=== PATIENT | male | born 1960 | race Caucasian/White ===

== ENCOUNTER → 2023-11-05 00:56 | Outpatient (CLI) | payer OTHER, SELFPAY ==
--- NOTE | 2023-11-05 | DI.RAD_ITS ---
Exam(s) XR THORACIC SPINE COMPLETE EXAM: XR THORACIC SPINE COMPLETE CLINICAL HISTORY: Old spinal cord injury, mid and low back pain, Disability Determination. TECHNIQUE: 2D digital imaging was performed. Three views. COMPARISON: CR XR LUMBAR SPINE AP, LAT from 11/05/2023 FINDINGS: BONES: Mild compression of the superior endplate of T12. No additional compression fractures. ALIGNMENT: Mild levoscoliosis. DISKS: Endplate osteophytes are noted, greater in the lower thoracic levels, toward the right. SOFT TISSUE: Visualized lungs are clear. IMPRESSION: Mild T12 compression fracture. Mild scoliosis and moderate degenerative changes. DATA REPOSITORY: RADIATION DOSE DELIVERED:
--- NOTE | 2023-11-05 | DI.RAD_ITS ---
Exam(s) XR LUMBAR SPINE AP, LAT EXAM: XR LUMBAR SPINE AP, LAT CLINICAL HISTORY: Old spinal cord injury, Mid and Low back pain, Disability Determination. TECHNIQUE: 2D digital imaging was performed. Three views. COMPARISON: No exams were available for comparison FINDINGS: BONES: No fracture or destructive lesion. Vertebral body heights are maintained. There are prominent endplate osteophytes from L2-3 through L5-S1. Facet degenerative changes are present throughout, gr eatest at L4-5. DISKS: There is severe narrowing of the L2-3 and L4-5 disc spaces and moderate narrowing of the L3-4 and L5-S1 disc spaces. ALIGNMENT: There is a mild degenerative levoscoliosis. SOFT TISSUE: Normal. IMPRESSION: Severe degenerative changes of the lumbar spine. DATA REPOSITORY: RADIATION DOSE DELIVERED:
== END ==
PROVIDERS: Visit Provider Pediatrics Pediatric Rheumatology
DX: M51.25 Other intervertebral disc displacement, thoracolumbar region (principal)
CPT/HCPCS: 72072; 72100